=== PATIENT | female | born 2005 | race Caucasian/White ===

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

== ENCOUNTER 2024-08-23 13:52 | Outpatient (REF) | payer OTHER, SELFPAY ==
[2024-08-23 15:22] LABS: Absolute Lymphocyte Count 1.49 10^3/uL (1.2-3.4); Absolute Neutrophil Count 1.92 10^3/uL (1.2-6.7); Basophils % 2.3 %; Eosinophils % 11.3 %; HCT 38.3 % (36.0-46.0); Lymphocytes % 33.8 %; MCHC 31.3 % (32.0-36.0); MCV 86 fL (80-95); MPV 10.4 fL (8.0-11.0); Monocytes % 9.1 %; Neutrophils % 43.5 %; Platelet Count 350 10^3/uL (130-400); RBC 4.45 10^6/uL (3.93-5.22); RDW 13.1 % (11.7-14.6); RDW-SD 41.1 fL; WBC 4.41 10^3/uL (4.4-10.8)
[2024-08-23 15:49] LABS: ALT 21 U/L (14-59); AST 18 U/L (15-37); Albumin 4.3 g/dL (3.4-5.0); Alkaline Phosphatase 80 U/L (46-116); Anion Gap 7.5 mmol/L (3-11); BUN 15 mg/dL (7-18); Bilirubin, Total 0.7 mg/dL (0.2-1.0); CO2 29.5 mmol/L (21.0-32.0); CREATININE 0.8 mg/dL (0.55-1.02); Calcium 9.3 mg/dL (8.5-10.1); Chloride 104 mmol/L (98-107); Estimated GFR 108.78 (mL/min/1.73m2); Ferritin 7 ng/mL (8-252); Glucose 91 mg/dL (74-106); Iron 61 ug/dL (50-170); Potassium 4.9 mmol/L (3.5-5.1); Sodium 141 mmol/L (136-145); TSH (W/Ref FT4) 0.99 uIU/mL (0.52-4.13); Total Iron Binding Capacity 425 ug/dL (250-450); Total Protein 7.7 g/dL (6.4-8.2); Transferrin Sat 14 % (15-50)
== END 2024-08-23 13:53 | disposition home or self-care (01) ==
LOC: NCHCN 13:52
PROVIDERS: PCP Family Medicine; Visit Provider Family Medicine
DX: N92.1 Excessive and frequent menstruation with irregular cycle (principal); N92.0 Excessive and frequent menstruation with regular cycle
CPT/HCPCS: 80053; 82728; 83540; 83550; 84443; 85025

== ENCOUNTER 2024-10-15 22:11 | Outpatient (REF) | payer OTHER, SELFPAY ==
[2024-10-15 14:34] LABS: HCT 36.8 % (36.0-46.0); HGB 11.8 g/dL (11.2-15.7); MCH 27.8 pg (27.0-33.0); MCHC 32.1 % (32.0-36.0); MCV 87 fL (80-95); MPV 10.1 fL (8.0-11.0); Platelet Count 289 10^3/uL (130-400); RBC 4.24 10^6/uL (3.93-5.22); RDW 15.2 % (11.7-14.6); RDW-SD 48.5 fL; WBC 4.80 10^3/uL (4.4-10.8)
[2024-10-15 15:07] LABS: Ferritin 10 ng/mL (8-252)
[2024-10-15 15:11] LABS: Iron 228 ug/dL (50-170); Total Iron Binding Capacity 376 ug/dL (250-450); Transferrin Sat 61 % (15-50)
== END 2024-10-15 22:12 | disposition home or self-care (01) ==
LOC: NCHCN 22:11
PROVIDERS: PCP Family Medicine; Visit Provider Family Medicine
DX: E61.1 Iron deficiency (principal)
CPT/HCPCS: 85027; 82728; 83540; 83550